=== PATIENT | male | born 1950 | race Caucasian/White ===

== ENCOUNTER 2017-06-11 02:37 | Emergency (ER) | payer BC ==
[2017-06-11] MEDS ORDERED: GI Cocktail Oral Solution 30 ML PO ONE (03:24)
--- NOTE | 2017-06-11 03:34 | EDM.PDOC ---
ED HPI GENERAL MEDICAL PROBLEM - General Chief Complaint: Chest Pain Stated Complaint: chest pain Time Seen by Provider: 06/11/17 03:15 Source of Information: Reports: Patient History Limitations: Reports: No Limitations - History of Present Illness INITIAL COMMENTS - FREE TEXT/NARRATIVE: Patient comes in with chest discomfort that started last night. He has had this in the past and he does take medication for GERD. Takes metoprolol in addition to nexium. Was driving home from [place] when this happened and he did take an tona-seltzer. He has also had some neck pain and stiffness for which he is seeing PT for stretching. This has also been bothering him more frequently. Describes the chest pain as originating in his mid left breast area with some radiation down the left arm. Describes pain as a twinge that comes and goes intermittently. He denies chest pressure, no SOB, no sweating, nausea/vomiting, no blood in his urine or stool. Denies abdominal pain. Having regular BM and voiding habits. Denies any prior stroke or [place]. Father at 57 from stroke. He does have some increased swelling to his right leg. No new pain. Surgical history includes bilateral hip replacements. Denies smoking or drug use. Does drink socially with 1-2 glasses of wine 1-2 times per week. Residual polio symptoms with left leg weakness and deformity, needing cane for ambulation. 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: Other Medication(s) Left Arm Pain Score (Numeric/FACES): 2 - Related Data Allergies Allergy/AdvReac Type Severity Reaction Status Date / Time No Known Allergies Allergy Verified 06/11/17 02:41 Home Meds: Home Meds Aspirin 325 mg PO DAILY 06/11/17 [History] Esomeprazole Magnesium [Nexium] 40 mg PO DAILY 06/11/17 [History] Metoprolol Tartrate [Lopressor] 20 mg PO DAILY 06/11/17 [History] Past Medical History Cardiovascular History: Reports: Hypertension Gastrointestinal History: Reports: GERD Musculoskeletal History: Reports: Other (See Below) Other Musculoskeletal History: polio - Past Surgical History Musculoskeletal Surgical History: Reports: Hip Replacement Social & Family History - Tobacco Use Smoking Status *Q: Never Smoker ED ROS GENERAL - Review of Systems Review Of Systems: See Below Constitutional: Reports: No Symptoms HEENT: Reports: No Symptoms Respiratory: Reports: No Symptoms Cardiovascular: Reports: Chest Pain Endocrine: Reports: No Symptoms GI/Abdominal: Reports: No Symptoms : Reports: No Symptoms Musculoskeletal: Reports: Neck Pain, Arm Pain (left sided) Skin: Reports: No Symptoms Neurological: Reports: No Symptoms Psychiatric: Reports: No Symptoms Hematologic/Lymphatic: Reports: No Symptoms Immunologic: Reports: No Symptoms ED EXAM, GENERAL - Physical Exam Exam: See Below Exam Limited By: No Limitations General Appearance: Alert, WD/WN, No Apparent Distress Eye Exam: Bilateral Eye: EOMI, PERRL Ears: Normal TMs Ear Exam: Bilateral Ear: TM normal Throat/Mouth: Normal Inspection, Normal Oropharynx Head: Atraumatic, Normocephalic Neck: Normal Inspection, Supple, Limited Range of Motion, Tender Lateral (left side) Respiratory/Chest: No Respiratory Distress, Lungs Clear, Normal Breath Sounds, No Accessory Muscle Use, Chest Non-Tender Cardiovascular: Normal Peripheral Pulses, Regular Rate, Rhythm, No Edema, No Gallop, No Murmur Peripheral Pulses: 1+: Posterior Tibial (R), Dorsalis Pedis (R), 2+: Posterior Tibial (L), Dorsalis Pedis (L) GI/Abdominal: Normal Bowel Sounds, Soft, Non-Tender, No Organomegaly, No Distention Back Exam: Normal Inspection, Full Range of Motion Extremities: Normal Inspection, Normal Range of Motion, Non-Tender, Pedal Edema (right greater than left 2-3+ edema, pitting) Neurological: Alert, Oriented, CN II-XII Intact, Normal Cognition, Normal Reflexes, No Motor/Sensory Deficits, Abnormal Gait (walks with cane, residual from childhood polio) Psychiatric: Normal Affect, Normal Mood Skin Exam: Warm, Dry, Intact, Normal Color, No Rash Lymphatic: No Adenopathy EKG INTERPRETATION EKG Date: 06/11/17 Time: 02:37 Rhythm: NSR Stanley: Normal P-Wave: Present QRS: Normal ST-T: Normal QT: Normal Comparison: NA - No Prior EKG Course - Vital Signs Last Recorded V/S: Last Vital Signs Temp 36.1 C 06/11/17 05:53 Pulse 70 06/11/17 05:53 Resp 18 07/16/17 05:53 BP 140/80 06/11/17 05:53 Pulse Ox 96 06/11/17 05:53 - Orders/Labs/Meds Labs: Laboratory Tests 06/11/17 06/11/17 06/11/17 Range/Units 03:40 03:40 03:40 WBC 7.3 (4.0-10.0) x10^3/uL RBC 5.04 (4.5-6.0) x10^6/uL Hgb 15.5 (14.0-18.0) g/dL Hct 46.3 (40.0-52.0) % MCV 91.9 (78.0-93.0) fL MCH 30.8 (26.0-32.0) pg MCHC 33.5 (32.0-36.0) g/dL RDW Coeff of Tessie 13.9 (10.0-15.0) % Plt Count 251 (130-400) x10^3/uL Neut % (Auto) 49.7 L (50.0-80.0) % Lymph % (Auto) 36.3 (25.0-50.0) % [place] % (Auto) 9.2 (2.0-11.0) % Eos % (Auto) 4.3 H (0.0-4.0) % Baso % (Auto) 0.5 (0.2-1.2) % PT 10.7 (10.0-12.8) SEC INR 0.9 L (2.0-3.5) D-Dimer, Quantitative 0.60 H (<=0.58) mg/LFEU Sodium 141 (136-145) mmol/L Potassium 3.7 (3.5-5.1) mmol/L Chloride 105 (98-107) mmol/L Carbon Dioxide 31 (21-32) mmol/L BUN 9 (7-18) mg/dL Creatinine 0.7 (0.70-1.30) mg/dL Est Cr Clr Drug Dosing 110.56 mL/min Estimated GFR (MDRD) > 60 Glucose 104 (74-106) mg/dL Calcium 8.6 (8.5-10.1) mg/dL Corrected Calcium 9.08 (8.5-10.1) mg/dL Total Bilirubin 0.5 (0.2-1.0) mg/dL AST 22 (15-37) U/L ALT 34 (16-63) U/L Alkaline Phosphatase 61 (46-116) U/L Creatine Kinase 75 (39-308) U/L Creatine Kinase Index 1.1 (0.0-4.0) % CK-MB (CK-2) 0.8 (0.0-3.6) ng/mL Troponin I < 0.017 (<=0.056) ng/mL B-Natriuretic Peptide 44 (<=125) pg/mL Total Protein 7.1 (6.4-8.2) g/dL Albumin 3.4 (3.4-5.0) g/dL Globulin 3.7 Albumin/Globulin Ratio 0.92 TSH, Ultra Sensitive 3.304 (0.358-3.74) uIU/mL Meds: Medications Discontinued Medications Generic Name Dose Route Start Last Admin Trade Name Freq PRN Reason Stop Dose Admin Al Hydroxide/Mg Hydroxide 30 ml 06/11/17 03:24 06/11/17 03:27 Gi Cocktail PO 06/11/17 03:25 30 ml ONETIME ONE Administration Enoxaparin Sodium 120 mg 06/11/17 05:26 06/11/17 06:18 Lovenox SUBCUT 06/11/17 05:27 120 mg ONETIME ONE Administration Sodium Chloride 100 mls @ 3 mls/sec 06/11/17 05:05 06/11/17 05:34 Normal Saline IV 3 mls/sec ASDIRECTED MARSHALL Administration Iopamidol 100 ml 06/11/17 05:03 06/11/17 05:33 Isovue-300 (61%) IVPUSH 06/11/17 05:04 100 ml ONETIME ONE Administration Warfarin Sodium 5 mg 06/11/17 05:27 06/11/17 06:21 Coumadin PO 06/11/17 05:28 5 mg ONETIME ONE Administration - Re-Assessments/Exams Free Text/Narrative Re-Assessment/Exam: 06/11/17 03:40 labs ordered. ECG normal 06/12/17 22:24 Follow up of venous doppler negative for DVT Departure - Departure Time of Disposition: 06:32 Disposition: Home, Self-Care 01 Condition: Good Clinical Impression: Atypical chest pain Instructions: Nonspecific Chest Pain, [id number] Referrals: PCP,Unobtain [Primary Care Provider] - Forms: ED Department Discharge Additional Instructions: I did treat you with anticoagulation here in the ER. You need to have an ultrasound of your bilateral veins in your legs to rule out a blood clot. Follow up here in the ER with the results. If there is a clot in either or both of your legs, you will have to take anticoagulation until you are told by your primary doctor that it can be stopped. If there are no clots, no further anticoagulation will be necessary. The hospital's x-ray department will call you with a time for the ultrasound. Your heart enzyme, and ecg were normal. Your chest pain could also be related to your neck pain. It could be some torticollis or pinching of your cervical or thoracic spine. Please call with any questions or concerns. - Problem List & Annotations (1) Atypical chest pain SNOMED Code(s): 025717905 Code(s): R07.89 - OTHER CHEST PAIN Status: Acute Priority: Medium - Problem List Review Problem List Initiated/Reviewed/Updated: Yes - Assessment/Plan Assessment:: atypical chest pain elevation of d-dimer Plan: I did treat you with anticoagulation here in the ER. You need to have an ultrasound of your bilateral veins in your legs to rule out a blood clot. Follow up here in the ER with the results. If there is a clot in either or both of your legs, you will have to take anticoagulation until you are told by your primary doctor that it can be stopped. If there are no clots, no further anticoagulation will be necessary. The hospital's x-ray department will call you with a time for the ultrasound. Your heart enzyme, and ecg were normal. Your chest pain could also be related to your neck pain. It could be some torticollis or pinching of your cervical or thoracic spine. Please call with any questions or concerns.
[2017-06-11 04:19] LABS: CHLORIDE,CL 105 mmol/L (98-107); SODIUM,NA 141 mmol/L (136-145)
[2017-06-11] MEDS ORDERED: Iopamidol 612 MG/ML 100 ML Bottle IVPUSH ONE (05:03)
[2017-06-11] MEDS ORDERED: Sodium Chloride 0.9% 100 ML IV SCH (05:05)
[2017-06-11] MEDS ORDERED: Enoxaparin 120 MG/0.8 ML Syringe SUBCUT ONE (05:26)
[2017-06-11] MEDS ORDERED: Warfarin 5 MG Tab PO ONE (05:27)
[2017-06-11 05:53] VITALS: BP 140/80
== END 2017-06-11 06:32 | disposition home or self-care (01) ==
LOC: VM.ED 02:37
DX: R07.89 Other chest pain (principal); K21.9 Gastro-esophageal reflux disease without esophagitis; I10 Essential (primary) hypertension; M54.2 Cervicalgia; Z96.649 Presence of unspecified artificial hip joint; Z79.82 Long term (current) use of aspirin; Z79.899 Other long term (current) drug therapy
CPT/HCPCS: 36415; 71275; 80053; 82550; 82553; 83880; 84443; 84484; 85025; 85379; 85610; 93005; 96372; 99285; A9270; J1650; J7050; Q9967

== ENCOUNTER 2017-06-21 09:42 | Emergency (ER) | payer BC, MEDICARE ==
[2017-06-21 10:12] VITALS: BP 147/78
[2017-06-21 11:13] LABS: CHLORIDE,CL 103 mmol/L (98-107); SODIUM,NA 141 mmol/L (136-145)
--- NOTE | 2017-06-22 08:32 | ER ---
Date of Service: 06/21/2017 SUBJECTIVE: Willam presents to the emergency room with complaints of pain and swelling to his right knee and lower leg. He was seen in the emergency room on 06/11/2017 for chest pain. He had a negative CT angiogram of his chest and subsequently underwent a bilateral vascular ultrasound of both his right and left lower extremity on the which were negative for DVT. The patient states that he is not experiencing any calf pain but has noticed swelling and pain to his right knee. He does have a history of polio and does wear a brace on his left knee around his left lower extremity for this. The patient states that he has not been experiencing any fever or chills or sweats. He does have a history of gout but states it has been several years since he has had an attack. He states that he is not currently on allopurinol for this. PAST MEDICAL HISTORY: 1. Hypertension. 2. Post polio syndrome. 3. GERD. MEDICATIONS: 1. Metoprolol tartrate 20 mg p.o. daily. 2. Nexium 40 mg daily. 3. Aspirin 325 mg daily. ALLERGIES: NKDA. REVIEW OF SYSTEMS: General: No fever or chills. HEENT: No sore throat, rhinorrhea, or congestion. Respiratory: No shortness of breath. Cardiac: Denies any substernal chest pain. Gastrointestinal: No nausea, vomiting, or diarrhea. No melena, hematochezia, or hematemesis. Genitourinary: Denies any dysuria. Musculoskeletal: Please see history of present illness. Neurologic: No fainting, blackouts, or lightheadedness. PHYSICAL EXAMINATION: General: This is a 66-year-old male patient, in no acute distress. Vital Signs: Blood pressure is 147/78, heart rate is 91, temperature is 36.6, respiratory rate is 20, and O2 saturations 95%. Skin: Warm, pink, and dry. Musculoskeletal: He does have some mild nonpitting edema around his right knee. He does have tenderness with manipulation of the knee joint. No calf tenderness. Homans sign is negative. No obvious deformity or our crepitus noted to the knee. Neurovascular circulation, sensation, and motor function are within normal limits in the distal portion of the extremity. LABORATORY DATA: WBCs 12.5. Sodium is 141, potassium is 3.5, chloride is 103, bicarb is 27, BUN is 10, creatinine 0.8. Creatinine clearance is 96.74, glucose is 179, uric acid is 7.6, calcium is 8.3, C-reactive protein is 1.3. ASSESSMENT: Gout. PLAN: The patient was started on prednisone 40 mg daily for 5 days. Also, advised him to start ibuprofen 600 mg every 6 hours for the inflammation. He was given a short course of [place] 5/325 with instructions to take 1 every 4 to 6 hours as needed for pain. I advised him to establish care in the clinic to get started on allopurinol once the inflammation is down. All questions were answered. MWK: 06/21/2017 11:29:26 MODL: 06/21/2017 15:11:49 /[id number]
== END 2017-06-21 11:25 | disposition home or self-care (01) ==
LOC: VM.ED 09:42
DX: M10.9 Gout, unspecified (principal); I10 Essential (primary) hypertension; K21.9 Gastro-esophageal reflux disease without esophagitis; Z79.82 Long term (current) use of aspirin; Z79.899 Other long term (current) drug therapy
CPT/HCPCS: 36415; 80048; 84550; 85025; 86140; 99283